=== PATIENT | male | born 1990 | race Caucasian/White ===

== ENCOUNTER → 2016-11-25 | Outpatient (CLI) | payer MEDICAID ==
[2016-11-25 11:35] LABS: CHLORIDE,CL 109 mmol/L (98-110); SODIUM,NA 141 mmol/L (136-146)
== END ==
LOC: MW.CHFP 10:43
PROVIDERS: ATTEND Student in an Organized Health Care Education/Training Program
DX: L65.9 Nonscarring hair loss, unspecified (principal)
CPT/HCPCS: 36415; 80053; 84443; 85025

== ENCOUNTER 2017-12-13 00:49 | Emergency (ER) | payer MEDICAID ==
--- NOTE | 2017-12-13 00:57 | EDM.PDOC ---
ED HPI GENERAL MEDICAL PROBLEM - General Chief Complaint: ENT Problem Stated Complaint: TOOTH PAIN Time Seen by Provider: 12/13/17 00:55 Source of Information: Reports: Patient - History of Present Illness INITIAL COMMENTS - FREE TEXT/NARRATIVE: HISTORY AND PHYSICAL: History of present illness: 27-year-old trans-male presenting to the emergency department with chief complaint of right-sided tooth pain 2-3 days. Patient states that he has had problems with 2 teeth on his right side for some time. He has called for a dentist but states that he has been unable to make an appointment secondary to them requiring her referral. Patient states that he has had some increasing pain on his right side with his right lower molar as well as right upper for the past 2-3 days. He mentions increasing pain radiates into his jaw. He is able to speak clearly and has no drooling. He did have some nausea today but denies any vomiting. He has had no fever, chills, malaise, diarrhea, sore throat, abdominal pain, or other symptoms of systemic infection. Patient currently denies any chest pain, palpitations, shortness of breath, syncopal episodes, or focal neurologic deficits. On exam tooth #1 as well as #32 are cracked with mild deterioration and surrounding erythema to come. There is no pain on tapping with tongue blade. Patient is able to speak clearly with no hot potato voice or no signs of drooling. Review of systems: As per history of present illness and below otherwise all systems reviewed and negative. Past medical history: As per history of present illness and as reviewed below otherwise noncontributory. Surgical history: As per history of present illness and as reviewed below otherwise noncontributory. Social history: No reported history of drug or alcohol abuse. Family history: As per history of present illness and as reviewed below otherwise noncontributory. Physical exam: HEENT: Atraumatic, normocephalic, pupils reactive, negative for conjunctival pallor or scleral icterus, mucous membranes moist, throat clear, neck supple, nontender, trachea midline. Lungs: Clear to auscultation, breath sounds equal bilaterally, chest nontender. Heart: S1S2, regular, negative for clicks, rubs, or JVD. Abdomen: Soft, nondistended, nontender. Negative for masses or hepatosplenomegaly. Negative for costovertebral tenderness. Pelvis: Stable nontender. Genitourinary: Deferred. Rectal: Deferred. Extremities: Atraumatic, negative for cords or calf pain. Neurovascular unremarkable. Neuro: Awake, alert, oriented. Cranial nerves II through XII unremarkable. Cerebellum unremarkable. Motor and sensory unremarkable throughout. Exam nonfocal. Diagnostics: [] Therapeutics: Dental balls Clindamycin 600 mg 1 followed by 300 mg 4 times a day 10 days Impression: Dental abscess Plan: As above in history of present illness patient has poor dentation on tooth #1, and #32. There is mild deterioration noted. He has surrounding erythema most consistent with a dental infection. Did treat with dental balls as well as clindamycin. He was given his first dose of 600 mg here in the emergency department prescription for 300 mg to be taken for 10 days. He is instructed to call number provided for dental appointment. I also gavee him the number for ear nose and throat as he states that he gets mucus congestion in his mouth which has never been assessed. Definitive disposition and diagnosis as appropriate pending reevaluation and review of above. 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 ED EXAM, GENERAL - Physical Exam Exam: See Below Course - Vital Signs Last Recorded V/S: Last Vital Signs Temp 97.5 F 12/13/17 00:49 Pulse 77 12/13/17 00:49 Resp 18 12/13/17 00:49 BP 123/87 12/13/17 00:49 Pulse Ox 96 12/13/17 00:49 - Orders/Labs/Meds Meds: Medications Discontinued Medications Generic Name Dose Route Start Last Admin Trade Name Freq PRN Reason Stop Dose Admin Benzocaine 2 each 12/13/17 01:15 Hurricaine One 20% MUCMEM 12/13/17 01:16 ONETIME ONE Clindamycin HCl 600 mg 12/13/17 01:18 Cleocin PO 12/13/17 01:19 ONETIME ONE Lidocaine HCl 15 ml 12/13/17 01:15 Xylocaine 2% Viscous PO 12/13/17 01:16 ONETIME ONE Departure - Departure Time of Disposition: : Disposition: Home, Self-Care 01 Condition: Good Clinical Impression: Dental abscess - Discharge Information Referrals: PCP,None [Primary Care Provider] - Forms: ED Department Discharge Additional Instructions: My general discharge The following information is given to patients seen in the emergency department who are being discharged to home. This information is to outline your options for follow-up care. We provide all patients seen in our emergency department with a follow-up referral. The need for follow-up, as well as the timing and circumstances, are variable depending upon the specifics of your emergency department visit. If you don't have a primary care physician on staff, we will provide you with a referral. We always advise you to contact your personal physician following an emergency department visit to inform them of the circumstance of the visit and for follow-up with them and/or the need for any referrals to a consulting specialist. The emergency department will also refer you to a specialist when appropriate. This referral assures that you have the opportunity for follow-up care with a specialist. All of these measure are taken in an effort to provide you with optimal care, which includes your follow-up. Under all circumstances we always encourage you to contact your private physician who remains a resource for coordinating your care. When calling for follow-up care, please make the office aware that this follow-up is from your recent emergency room visit. If for any reason you are refused follow-up, please contact the [facility] Emergency Department at and asked to speak to the emergency department charge nurse. [facility] - ENT, ear nose and throat Professional Building [address] [place] [address], [address] [place] [address] [facility] [address] [place] [id number] Use dental balls for symptomatic relief of pain. May continue use Tylenol and ibuprofen for pain relief as well. Take antibiotics as prescribed. We will provide you with the numbers for a dentist. Be sure to tell them if you were in the emergency department and a wish for you to be seen for possible extraction. I also included above the number for ear nose and throat if you wish to call to schedule appointment for her other issue. Be sure to return emergency department if they have any new or worsening symptoms.
[2017-12-13] MEDS ORDERED: Benzocaine 20% Topical Spray UD MUCMEM ONE (01:15)
[2017-12-13] MEDS ORDERED: Lidocaine 2% Viscous Solution 15 ML Cup PO ONE (01:15)
[2017-12-13] MEDS ORDERED: Clindamycin HCl 150 MG Cap PO ONE (01:18)
[2017-12-13] MEDS ORDERED: Clindamycin HCl 150 MG Cap ONE (01:27)
[2017-12-13 01:40] VITALS: BP 124/69
== END 2017-12-13 01:35 | disposition home or self-care (01) ==
LOC: MW.ED 00:49
DX: K04.7 Periapical abscess without sinus (principal); Z79.899 Other long term (current) drug therapy
CPT/HCPCS: 99282; A9270